=== PATIENT | female | born 1955 | race Caucasian/White ===

== ENCOUNTER → 2017-07-20 | Outpatient (CLI) | END | disposition home or self-care (01) ==

== ENCOUNTER → 2018-09-15 | Outpatient (CLI) | payer BC ==
--- NOTE | 2018-09-15 18:00 | CONS ---
Assessment/Plan Assessment/Plan Hospital Course (Demo Recall) 63-year-old female with known bilateral knee osteoarthritis. Her right knee is much worse than her left knee. She has been successfully treated in the past with steroid injections. Today on examination she not only has pain from osteoarthritis but also significant IT band tendinitis. At this time she is not ready for surgery. She is hesitant secondary to risks. Her unfortunately from a pulmonary embolism after a TKA. Plan: Right knee steroid injection Physical therapy for osteoarthritis and IT band tendinitis Patient is to ask the civil celebrant if it is safe for her to take meloxicam. Assessment/Plan (Daily) Right knee steroid injection procedure: Risks and benefits of steroid injection reviewed with patient. The risks include infection, failure, pain, swelling, nerve/tendon/ligament damage. The patient verbalized understanding and verbal consent was obtained prior to procedure. The right knee was prepped in a sterile fashion with alcohol and betadine the site of injection was confirmed. Lateral approach was used. The skin and capsule was anesthetized with 3mL 1% lidocaine. The right knee was injected with 2mL 1% lidocaine, 2mL 0.25% bupivacaine, 40mg Depo-Medrol. Injection flowed freely. Good hemostasis was achieved and no complications noted. The patient tolerated the procedure well. Limit activity and ice for 24-48 hours Consultation Date/Type/Reason Admit Date/Time Date of Consultation: Sep 15, 2018 Reason for Consultation Right worse than left knee pain Date/Time of Note DATE: 09/15/18 TIME: 17:42 Hx of Present Illness Is a 63-year-old female with a chief complaint of right and left knee pain. The pain is significantly worse in the right knee. The pain began approximately years ago. She has had previous steroid injections in her right knee by Dr. Herrera. Her last one was July 2017 and helped for at least 4 months. The patient's pain is in the lateral greater than medial aspect for the right knee and the medial aspect for the left knee. Pain is not radiating to the lower leg. The pain is rated as a 8/10. Patient denies complaints of numbness or tingling. The pain is exacerbated by climbing stairs and ambulation. ----- Duration: Years Injury: No Walking tolerance: 1/4 mile Limp: Yes Support: Cane Swelling: Yes Crepitation: No Instability: No Stairs: Painful and difficult Physical Therapy: No Injections: Multiple steroid injections in the past. NSAID's: No Prior surgery: No Back pain: Yes Hip pain: No Risk of AVN : No Patient denies fever, chills, shortness of breath, chest pain, nausea/vomiting, constipation, diarrhea, numbness, and tingling. Past Medical History A. fib History of cardiac ablation Hypercholesterolemia Asthma History of gastritis Past Surgical History Carpal tunnel release Cardiac angiogram Cardiac ablation Hysterectomy Left shoulder surgery Right shoulder surgery Right knee arthroscopic surgery x2 Family History Significant Family History: no pertinent family hx Social History Alcohol Use: none Smoking Status: Former smoker Drug Use: none Exam/Review of Systems Exam Vitals Weight: 208 pounds Height: 5 foot 2 inches BMI: 38.0 Temperature: 90.3 Heart Rate: 64 Blood Pressure: 169/80 Exam General: Awake, alert, in no acute distress, pleasant and cooperative Heart: regular rhythm Lungs: breathing comfortably, no tachypnea or dyspnea MUSCULOSKELETAL: Right and Left Knee This is a well developed female who is alert, oriented times three and in no apparent distress. Skin is intact over the right and left knee as well as the lower extremity with no abrasions, lacerations, or ulcerations. Observation of the patient's gait reveals an antalgic gait with slight varus thrust. Frontal plane alignment is varus on the right and left knees. On the right knee there is tenderness to palpation over the distal IT band and Gerdy's tubercle as well as less intense tenderness over the medial joint line. There is pain on palpation of medial joint line of the left knee. The patient demonstrates grinding anteriorly with ROM. Range of motion: 10 extension to approximately 90 degrees of flexion on the right knee and 01 30 on the left knee. Collateral ligament testing reveals no instability with varus or valgus stress at 0 and 30 degrees of flexion. Negative Marlon's and negative posterior drawer. Neurovascularly intact with 5/5 EHL/tibialis anterior/gastroc. Except for sensation over the right great toe and dorsal foot status post surgery sensation intact to light touch in a sural, saphenous, deep peroneal, superficial peroneal, medial and lateral plantar nerve distribution. Palpable, symmetric dorsalis pedis and posterior tibial pulses in both lower extremities. Hip examination normal Imaging Imaging The patient received a standard set of films today that were personally reviewed. Imaging included a standing bilateral knee AP, PA flexion, merchant views and a dedicated lateral of the affected knee: There is varus alignment of the knee right greater than left. There is complete loss of joint space in the medial compartment and mildmoderate loss in the lateral and patellofemoral compartment(s). There is osteophyte formation. There is subchondral sclerosis. There are subchondral cysts. Degenerative changes are most severe in the medial compartment(s) right knee worse than left. BRITTANI CHILDS MD Sep 15, 2018 17:55
--- NOTE | 2018-09-16 23:15 | RADRPT ---
PROCEDURE: XR Knees. CLINICAL INDICATION: Bilateral knee pain. TECHNIQUE: Total of eight views. Weightbearing frontal, oblique, and lateral views of the both kne es. Patellar views of both knees. COMPARISON: Right knee radiographs dated 07/20/2017. FINDINGS: There is no fracture or dislocation. The soft tissues are normal. There are degenerative changes of both knees with osteophytes arising from all 3 joint compartment ma rgins bilaterally. There is bilateral medial joint compartment narrowing with right worse than left. There is no lytic or blastic lesion. There is no radiopaque foreign body. IMPRESSION: 1. Moderate degenerative changes of both knees with right worse than left. RPTAT: QQ .Hosea Allen MD, MD Date Time Electronically viewed and signed by .Hosea Allen MD, on 09/16/2018 23:14 .R/
== END | disposition home or self-care (01) ==
LOC: HKI 14:16
PROVIDERS: ATTEND Orthopaedic Surgery Adult Reconstructive Orthopaedic Surgery
DX: M17.0 Bilateral primary osteoarthritis of knee (principal); I48.91 Unspecified atrial fibrillation; E78.00 Pure hypercholesterolemia, unspecified; J45.909 Unspecified asthma, uncomplicated; Z90.710 Acquired absence of both cervix and uterus
CPT/HCPCS: 20610; 73564; G0463